=== PATIENT | male | born 1955 | race Caucasian/White ===

== ENCOUNTER 2018-10-29 21:08 | Observation (INO) | payer OTHER ==
[2018-10-29 22:06] LABS: PLATELET COUNT 287 10^3/uL (150-400)
--- NOTE | 2018-10-29 22:10 | EDPHY ---
H & P Stated Complaint: SOB/R chest pain since 1830 Time Seen by Provider: 10/29/18 22:00 HPI/ROS: HPI The patient presents with cough which has been present for the last 5-6 days which has led to rib pain which he developed about 3 hr prior to presentation. The patient has had a deep though nonproductive cough accompanied by rhinorrhea which is somewhat improved with [id number] cough medication. Tonight he was having a fit of coughing and developed right-sided chest pain which he describes as in his ribs. It is worse with deep palpation and when he takes a deep breath. He does not have any shortness of breath. He did travel to [place] via airplane about 10 days ago. He does have a personal history of PE in 2015, cause unclear. He says this pain does not feel like his prior PE but he is concerned.. REVIEW OF SYSTEMS 10 systems were reviewed and negative with the exception of the elements mentioned in the history of present illness. PMHx: Prior PE, not on anticoagulation Soc Hx: Housed PHYSICAL General Appearance: Alert, no distress Eyes: Pupils equal and round no pallor or injection ENT, Mouth: Mucous membranes moist Respiratory: There are no retractions, lungs are clear to auscultation Cardiovascular: Regular rate and rhythm Gastrointestinal: Abdomen is soft and non-tender, no masses, bowel sounds normal Neurological: A&O, moves all extremities Skin: Warm and dry, no rashes Musculoskeletal: Neck is supple non tender Extremities: symmetrical, full range of motion Psychiatric: Patient is oriented X 3, there is no agitation Source: Patient Exam Limitations: No limitations - Personal History Current Tetanus/Diphtheria Vaccine: Yes Tetanus Vaccine Date: >10 YRS - Medical/Surgical History Hx Asthma: No Hx Chronic Respiratory Disease: No Hx Diabetes: No Hx Cardiac Disease: No Hx Renal Disease: No Hx Cirrhosis: No Hx Alcoholism: No Hx HIV/AIDS: No Hx Splenectomy or Spleen Trauma: No Other PMH: knee and hip replacements, high chol, hx PE - Social History Smoking Status: Never smoked Constitutional: Initial Vital Signs Temperature (C) 36.9 C 10/29/18 21:11 Heart Rate 95 10/29/18 21:11 Respiratory Rate 20 10/29/18 21:11 Blood Pressure 168/96 H 10/29/18 21:11 O2 Sat (%) 93 10/29/18 21:11 O2 Delivery Mode Room Air Allergies/Adverse Reactions: No Known Allergies Allergy (Verified 10/29/18 21:13) Home Medications: Medication Instructions Recorded Vits A,C,E/Lutein/Minerals 1 each PO DAILY 03/02/15 [Ocuvite with Lutein Tablet] Timolol 10/29/18 Medical Decision Making - Diagnostics Imaging Results: Imaging Impressions Chest X-Ray 10/29/18 22:08 Impression: Minimal right basilar atelectasis. Otherwise clear lungs. Chest/Thorax CTA 10/29/18 22:43 Impression: 1. Moderate volume of acute thrombopulmonary embolic disease. No right heart strain or sagittal embolism. 2. Minimal bibasilar atelectasis, worse right than left. 3. Minimal coronary calcification. Findings discussed with Emergency Department physician, Ivonne Darling MD at 10/29/2018 23:30. Imaging: Discussed imaging studies w/ call taker Radiologist Differential Diagnosis: 63-year-old male, relatively healthy, history of unprovoked PE in 2015 presents with several days of cough, now with right-sided pleuritic chest pain. Here, vital signs are normal. Differential diagnosis includes pulmonary embolism, costochondritis, pneumothorax. In the emergency department, chest x-ray was performed which is unremarkable. Basic labs demonstrated elevated D-dimer. Because of this, patient underwent CT scan of his chest with contrast which did demonstrate bilateral pulmonary emboli. I discussed this with him. It could be that airplane flight provoked this as was suspected in the past. I have ordered Lovenox for him. I will admit him to the hospitalist service under Dr. Rizzo. He is hemodynamically stable. - Data Points Laboratory Results: Laboratory Results 10/29/18 21:25 10/29/18 21:25 10/29/18 10/29/18 10/29/18 23:42 21:25 21:25 WBC RBC Hgb Hct MCV MCH MCHC RDW Plt Count MPV Neut % (Auto) Lymph % (Auto) [place] % (Auto) Eos % (Auto) Baso % (Auto) Nucleat RBC Rel Count Absolute Neuts (auto) Absolute Lymphs (auto) Absolute Monos (auto) Absolute Eos (auto) Absolute Basos (auto) Absolute Nucleated RBC Immature Gran % Immature Gran # PT 12.8 SEC SEC (12.0-15.0) INR 1.00 (0.83-1.16) APTT 30.6 SEC SEC (23.0-38.0) D-Dimer 2.57 ug/mLFEU H ug/mLFEU (0.00-0.50) Sodium Potassium Chloride Carbon Dioxide Anion Gap BUN Creatinine Estimated GFR Glucose Calcium Total Bilirubin AST ALT Alkaline Phosphatase POC Troponin I 0.01 ng/mL ng/mL (0.00-0.08) NT-Pro-B Natriuret Pep 117 pg/mL pg/mL (0-125) Total Protein Albumin 10/29/18 10/29/18 21:25 21:25 WBC 8.91 10^3/uL 10^3/uL (3.80-9.50) RBC 5.62 10^6/uL 10^6/uL (4.40-6.38) Hgb 16.1 g/dL g/dL (13.7-17.5) Hct 49.1 % % (40.0-51.0) MCV 87.4 fL fL (81.5-99.8) MCH 28.6 pg pg (27.9-34.1) MCHC 32.8 g/dL g/dL (32.4-36.7) RDW 14.4 % % (11.5-15.2) Plt Count 287 10^3/uL 10^3/uL (150-400) MPV 9.4 fL fL (8.7-11.7) Neut % (Auto) 74.6 % H % (39.3-74.2) Lymph % (Auto) 15.4 % % (15.0-45.0) Lea % (Auto) 8.3 % % (4.5-13.0) Eos % (Auto) 1.1 % % (0.6-7.6) Baso % (Auto) 0.4 % % (0.3-1.7) Nucleat RBC Rel Count 0.0 % % (0.0-0.2) Absolute Neuts (auto) 6.64 10^3/uL H 10^3/uL (1.70-6.50) Absolute Lymphs (auto) 1.37 10^3/uL 10^3/uL (1.00-3.00) Absolute Monos (auto) 0.74 10^3/uL 10^3/uL (0.30-0.80) Absolute Eos (auto) 0.10 10^3/uL 10^3/uL (0.03-0.40) Absolute Basos (auto) 0.04 10^3/uL 10^3/uL (0.02-0.10) Absolute Nucleated RBC 0.00 10^3/uL 10^3/uL (0-0.01) Immature Gran % 0.2 % % (0.0-1.1) Immature Gran # 0.02 10^3/uL 10^3/uL (0.00-0.10) PT INR APTT D-Dimer Sodium 135 mEq/L mEq/L (135-145) Potassium 4.6 mEq/L mEq/L (3.5-5.2) Chloride 105 mEq/L mEq/L (97-110) Carbon Dioxide 21 mEq/l L mEq/l (22-31) Anion Gap 9 mEq/L mEq/L (6-14) BUN 21 mg/dL mg/dL (7-23) Creatinine 1.0 mg/dL mg/dL (0.7-1.3) Estimated GFR > 60 Glucose 112 mg/dL H mg/dL (70-100) Calcium 9.0 mg/dL mg/dL (8.5-10.4) Total Bilirubin 0.9 mg/dL mg/dL (0.1-1.4) AST 43 IU/L IU/L (17-59) ALT 44 IU/L IU/L (21-72) Alkaline Phosphatase 85 IU/L IU/L (38-126) POC Troponin I NT-Pro-B Natriuret Pep Total Protein 7.4 g/dL g/dL (6.3-8.2) Albumin 4.4 g/dL g/dL (3.5-5.0) Medications Given: Acetaminophen (Tylenol) 650 mg PO Q4HRS PRN PRN Reason: Pain, Mild/Fever, Can Take PO Stop: 04/27/19 23:55 Last Admin: 10/30/18 01:04 Dose: 650 mg Discontinued Medications Enoxaparin Sodium (Lovenox) 100 mg SC ONCE ONE Stop: 10/29/18 23:46 Last Admin: 10/30/18 00:35 Dose: 100 mg Point of Care Test Results: Chemistry 10/29/18 23:42 POC Troponin I 0.01 ng/mL ng/mL (0.00-0.08) Departure - Departure Disposition: [facility] Inpatient Acute Clinical Impression: Pulmonary embolism Qualifiers: Pulmonary embolism type: unspecified Chronicity: acute Acute cor pulmonale presence: without acute cor pulmonale Qualified Code(s): I26.99 - Other pulmonary embolism without acute cor pulmonale Condition: Fair
[2018-10-29] MEDS ORDERED: IOPAMIDOL (ISOVUE 370) 100 ML BTL IV ONE (22:49)
[2018-10-29 23:43] LABS: PROTIME(PATIENT) 12.8 SEC (12.0-15.0)
[2018-10-29] MEDS ORDERED: ENOXAPARIN 100 MG/ML SYR SC ONE (23:45)
[2018-10-29] MEDS ORDERED: ONDANSETRON 4 MG/2 ML VIAL IVP PRN (23:56)
[2018-10-29] MEDS ORDERED: ACETAMINOPHEN 325 MG TAB PO PRN (23:56)
[2018-10-29] MEDS ORDERED: ONDANSETRON DISINTEGRATING 4 MG TAB PO PRN (23:56)
--- NOTE | 2018-10-30 00:31 | PDGENHP ---
History and Physical - Chief Complaint Cough, Rib pain - History of Present Illness 63 yo M w/ hx of PE presents with cough and chest wall pain. He has noticed a cough for 5 or 6 days. He denies infectious symptoms aside from this including fever, sore throat, and chills. Then, today, he developed R sided chest wall pain near his axilla. This somewhat reminded him of a previous PE episode so he came to the ED. In the ED a CTA was notable for acute, bilateral PE's. His presentation is very similar to 2015 when he was also diagnosed with bilateral PE's. That clotting event was deemed unprovoked aside from some recent air travel. Today he denies recent surgery, immobilization, or trauma. He was on a flight from to [place] 10 days ago, which is unlikely to be contributing. He was treated with Xarelto for 6 months for his last PE and tells me he had no issues with the medication from a side-effect or cost standpoint. Case discussed with ED physician Dr. Darling; records reviewed and summarized above. History Information - Allergies/Home Medication List Allergies/Adverse Reactions: No Known Allergies Allergy (Verified 10/29/18 21:13) Home Medications: Vits A,C,E/Lutein/Minerals [Ocuvite with Lutein Tablet] 1 each PO DAILY [Last Taken 03/02/15] Timolol 10/29/18 [Last Taken Unknown] I have personally reviewed and updated: family history, medical history - Past Medical History pulmonary embolism - Surgical History Reports: no pertinent surgical hx Additional surgical history: No recent surgeries - Family History Additional family history: Denies family hx VTE - Social History Smoking Status: Never smoked Review of Systems Review of Systems: ROS: 10pt was reviewed & negative except for what was stated in HPI & below Physical Exam Physical Exam: Temp Pulse Resp BP Pulse Ox 36.8 C 86 18 145/78 H 92 10/30/18 00:24 10/30/18 00:24 10/30/18 00:24 10/30/18 00:24 10/30/18 00:24 Constitutional: no apparent distress, not in pain Eyes: PERRL, EOMI Ears, Nose, Mouth, Throat: moist mucous membranes, no oral mucosal ulcers Cardiovascular: regular rate and rhythym, no murmur, rub, or gallop Respiratory: no respiratory distress, clear to auscultation Gastrointestinal: normoactive bowel sounds, soft, non-tender abdomen Skin: warm, normal color Musculoskeletal: full muscle strength, no muscle tenderness Neurologic: AAOx3, CN II-XII Intact Psychiatric: interacting appropriately, not anxious Lab Data & Imaging Review 10/29/18 21:25 10/29/18 21:25 WBC 8.91 10^3/uL (3.80-9.50) 10/29/18 21: RBC 5.62 10^6/uL (4.40-6.38) 10/29/18 21:25 Hgb 16.1 g/dL (13.7-17.5) 10/29/18 21: Hct 49.1 % (40.0-51.0) 10/29/18 21: MCV 87.4 fL (81.5-99.8) 10/29/18 21: MCH 28.6 pg (27.9-34.1) 10/29/18 21: MCHC 32.8 g/dL (32.4-36.7) 10/29/18 21: RDW 14.4 % (11.5-15.2) 10/29/18 21: Plt Count 287 10^3/uL (150-400) 10/29/18 21: MPV 9.4 fL (8.7-11.7) 10/29/18 21:25 Neut % (Auto) 74.6 % (39.3-74.2) H 10/29/18 21: Lymph % (Auto) 15.4 % (15.0-45.0) 10/29/18 21:25 [place] % (Auto) 8.3 % (4.5-13.0) 10/29/18 21:25 Eos % (Auto) 1.1 % (0.6-7.6) 10/29/18 21: Baso % (Auto) 0.4 % (0.3-1.7) 10/29/18 21: Nucleat RBC Rel Count 0.0 % (0.0-0.2) 10/29/18 21: Absolute Neuts (auto) 6.64 10^3/uL (1.70-6.50) H 10/29/18 21:25 Absolute Lymphs (auto) 1.37 10^3/uL (1.00-3.00) 10/29/18 21:25 Absolute Monos (auto) 0.74 10^3/uL (0.30-0.80) 10/29/18 21:25 Absolute Eos (auto) 0.10 10^3/uL (0.03-0.40) 10/29/18 21:25 Absolute Basos (auto) 0.04 10^3/uL (0.02-0.10) 10/29/18 21:25 Absolute Nucleated RBC 0.00 10^3/uL (0-0.01) 10/29/18 21: Immature Gran % 0.2 % (0.0-1.1) 10/29/18 21: Immature Gran # 0.02 10^3/uL (0.00-0.10) 10/29/18 21:25 PT 12.8 SEC (12.0-15.0) 10/29/18 21:25 INR 1.00 (0.83-1.16) 10/29/18 21:25 APTT 30.6 SEC (23.0-38.0) 10/29/18 21:25 D-Dimer 2.57 ug/mLFEU (0.00-0.50) H 10/29/18 21:25 Sodium 135 mEq/L (135-145) 10/29/18 21:25 Potassium 4.6 mEq/L (3.5-5.2) 10/29/18 21:25 Chloride 105 mEq/L (97-110) 10/29/18 21:25 Carbon Dioxide 21 mEq/l (22-31) L 10/29/18 21:25 Anion Gap 9 mEq/L (6-14) 10/29/18 21:25 BUN 21 mg/dL (7-23) 10/29/18 21:25 Creatinine 1.0 mg/dL (0.7-1.3) 10/29/18 21:25 Estimated GFR > 60 10/29/18 21:25 Glucose 112 mg/dL (70-100) H 10/29/18 21:25 Calcium 9.0 mg/dL (8.5-10.4) 10/29/18 21:25 Total Bilirubin 0.9 mg/dL (0.1-1.4) 10/29/18 21:25 AST 43 IU/L (17-59) 10/29/18 21:25 ALT 44 IU/L (21-72) 10/29/18 21:25 Alkaline Phosphatase 85 IU/L (38-126) 10/29/18 21:25 POC Troponin I 0.01 ng/mL (0.00-0.08) 10/29/18 23:42 NT-Pro-B Natriuret Pep 117 pg/mL (0-125) 10/29/18 21:25 Total Protein 7.4 g/dL (6.3-8.2) 10/29/18 21:25 Albumin 4.4 g/dL (3.5-5.0) 10/29/18 21:25 Imaging Review: Imaging Impressions Chest X-Ray 10/29/18 22:08 Impression: Minimal right basilar atelectasis. Otherwise clear lungs. Chest/Thorax CTA 10/29/18 22:43 Impression: 1. Moderate volume of acute thrombopulmonary embolic disease. No right heart strain or sagittal embolism. 2. Minimal bibasilar atelectasis, worse right than left. 3. Minimal coronary calcification. Findings discussed with Emergency Department physician, Ivonne Darling MD at 10/29/2018 23:30. Assessment & Plan Assessment: 63 yo M w/ hx of PE presents with recurrent pulmonary emboli. Plan: 1. Pulmonary emboli - Recurrent, last episode in 2014 treated with 6 months of Xarelto. There is no clear precipitating event on this occasion, as was the case in 2014. CTA (personally reviewed/interpreted) demonstrates moderate volume of acute thrombopulmonary embolic disease. No right heart strain or sagittal embolism. - Admit for observation - S/p Lovenox x1 in ED - Will start Xarelto in the morning per patient preference - Will obtain TTE noting recurrent nature of clot and mild hypoxia 2. Hypoxia - Mild, currently w/ oxygen saturations in the high 80's on room air. He is not in respiratory distress. - O2 PRN to maintain O2 sats > 89% - Incentive spirometry ordered Diet - Regular Code - Full Ppx - Xarelto Dispo - Admit under observation status
[2018-10-30 05:54] LABS: PLATELET COUNT 217 10^3/uL (150-400)
[2018-10-30] MEDS ORDERED: RIVAROXABAN 15 MG TAB PO SCH (08:00)
[2018-10-30] MEDS ORDERED: ENOXAPARIN 100 MG/ML SYR SC ONE (09:00)
[2018-10-30 11:30] VITALS: BP 138/77
--- NOTE | 2018-10-30 14:10 | ASDISCHSUM ---
Discharge Information Plan Status:Home with No Needs Medically Cleared to Leave:10/29/2018 Discharge Date:10/29/2018 CM D/C Disposition:Home, Routine, Self-Care ADT D/C Disposition: Projected Discharge Date:10/29/2018 Transportation at D/C:Family Discharge Delay Reason: Follow-Up Date:10/29/2018 Discharge Slot: Final Diagnosis:PEs Placement Information Patient Contact Information Contact Name:TYRONE Relationship: Address:[address] City:[place] Alternate Phone: [facility]/Zip Code:[place] [address] Email: Financial Information Financial Class:BCOP Primary Plan Desc:MIRZA AUGIE O [facility]O Primary Plan Number:[id number] Secondary Plan Desc: Secondary Plan Number: Assessment Information LACE LACE Length of stay for Answers: Less than 1 day current admission Acuity / Level of Answers: No Care: Did the patient have an inpatient admission? Comorbidities - select Answers: Other Notes: PE all that apply # of Emergency department Answers: 1-2 visits in the last 6 months Score: 2 Date Signed: 10/30/2018 02:08 PM Electronically Signed By:Rashida Chase Intervention Information
--- NOTE | 2018-10-30 20:36 | GDS ---
[f rep st] DISCHARGE SUMMARY DISCHARGE DIAGNOSES: A 63-year-old male presented with cough and right chest wall pain for the past 6 days. Denies and any infectious symptoms. Symptoms reminded him of a prior pulmonary embolism. I n the emergency room, CTA was notable for acute bilateral pulmonary embolism. Pulmonary embolism in 2015 was treated with 6 months of Xarelto. HOSPITAL COURSE BY PROBLEM: 1. Acute pulmonary emboli: This is recurrent, last episode in 2015. This was unprovoked. Given se cond episode, recommend lifelong anticoagulation. He has tolerated Xarelto in the past. We will dis charge on this. Troponin, EKG, and BNP were within normal. 2. Acute respiratory insufficiency: Room air sat was initially high 80s. This has resolved. Incen tive spirometry. DISPOSITION: Patient stable for discharge home. NEW MEDICATIONS: Xarelto. FOLLOWUP: Primary care physician. PHYSICAL EXAM: VITAL SIGNS: Today, temperature of 36.6, blood pressure 138/77, heart rate 74, respi ration 14, 90% on room air. GENERAL: He is well appearing, no acute distress. HEENT: PERRLA. Mitch st mucous membranes. CV: Regular rate and rhythm. LUNGS: Clear. No crackles or wheezing. ABDOME N: Soft, nontender, nondistended. Positive bowel sounds. : No López. MUSCULOSKELETAL: Left lo wer leg is slightly larger than right. No pain, redness. NEURO: 2 through 12 intact. PSYCH: Aler t and oriented x3. TIME SPENT ON DISCHARGE: Greater than 30 minutes coordinating discharge medications and discussing s annie effects of anticoagulation with patient. /[id number]/MODL
== END 2018-10-30 13:33 | disposition home or self-care (01) ==
LOC: F3N 10-30 00:45
PROVIDERS: ADMIT Student in an Organized Health Care Education/Training Program; ATTEND Internal Medicine
DX: I26.99 Other pulmonary embolism without acute cor pulmonale (principal); R06.89 Other abnormalities of breathing; Z96.643 Presence of artificial hip joint, bilateral; Z96.653 Presence of artificial knee joint, bilateral
CPT/HCPCS: 71046; 71275; G0378; 84484-ER; J1650; Q9967